=== PATIENT | female | born 1990 | race Caucasian/White ===

== ENCOUNTER → 2020-11-01 13:45 | Outpatient (CLI) | payer BC, SELFPAY ==
--- NOTE | ~2020-11-01 | US_ITS ---
EXAMINATION: US OB <= 14 weeks fetus DATE: 11/01/2020 14:31 INDICATION: First trimester dating TECHNIQUE: Real-time pelvic transabdominal and transvaginal ultrasound was performed. COMPARISON: None. FINDINGS: The uterus measures 9.5 x 7.4 x 7.3 cm. There is an intrauterine gestational sac. A yolk s ac is identified. heart motion is identified measuring 163 beats per minute (bpm) by M-mode Dop pler. The crown rump length measures 4.0 cm , which correlates with an estimated gestational ag e of 10 weeks and 6 day(s) (+/-) 7 day(s). The ovaries are not visualized however no adnexal abnormality is seen. There is no free fluid in the pelvis. IMPRESSION: 1. Live intrauterine with an estimated gestational age of 10 weeks and 6 day(s) (+/-) 7 day (s) and an estimated delivery date of 05/24/2021. Reviewed, dictated and finalized at location F. IMPRESSION: 1. Live intrauterine with an estimated gestational age of 10 weeks an d 6 day(s) (+/-) 7 day(s) and an estimated delivery date of 05/24/2021.
== END ==
PROVIDERS: Visit Provider Obstetrics & Gynecology Gynecology
DX: Z34.91 Encounter for supervision of normal pregnancy, unspecified, first trimester (principal); Z3A.10 10 weeks gestation of pregnancy
CPT/HCPCS: 76801